=== PATIENT | female | born 1980 | race African-American/Black ===

== ENCOUNTER 2023-12-13 04:02 | Day surgery (SDC) | payer OTHER ==
[2023-12-12 18:03] VITALS: BMI 19.2
[2023-12-13] MEDS ORDERED: oxyCODONE HCL 5 MG TABLET PO PRN (09:38)
[2023-12-13] MEDS ORDERED: LACTATED RINGERS SOLUTION 1,000 ML IV SCH (09:45)
[2023-12-13] MEDS ORDERED: LIDOCAINE HCL 1%, 10 MG/ML (20ML VIAL) ONE (10:10)
[2023-12-13] MEDS ORDERED: LIDOCAINE 1%/EPI 1:100000 (20 ML MULTI DOSE VIAL) ONE (11:27)
[2023-12-13] MEDS ORDERED: BUPIVACAINE HCL/PF 0.5% (5MG/ML) 10 ML VIAL ONE (11:28)
[2023-12-13] MEDS ORDERED: MIDAZOLAM HCL 2 MG/2 ML SINGLE DOSE VIAL ONE (12:47)
[2023-12-13] MEDS ORDERED: PROPOFOL 20 ML ONE ×2 (12:47→12:58)
[2023-12-13] MEDS: ceFAZolin SODIUM 1 GM VIAL IVPB ONE (13:05)
[2023-12-13] MEDS: LIDOCAINE 1%/EPI 1:100000 (20 ML MULTI DOSE VIAL) IJ ONE (13:29)
[2023-12-13] MEDS: BUPIVACAINE HCL/PF 0.5% (5 MG/ML) 30 ML VIAL IJ ONE (13:30)
[2023-12-13 13:48] VITALS: RESP 20
[2023-12-13 15:25] VITALS: BP 133/80; PULSE 90; TEMP 98.2
[2023-12-13] MEDS ORDERED: ONDANSETRON 4 MG/2 ML VIAL ONE (15:40)
[2023-12-13] MEDS: ONDANSETRON 4 MG/2 ML VIAL IVPUSH PRN (15:44)
== END 2023-12-13 16:43 | disposition home or self-care (01) ==
LOC: JASU-SURG 04:02
PROVIDERS: ATTEND Surgery
PROC: 0JB80ZX Excision of Abdomen Subcutaneous Tissue and Fascia, Open Approach, Diagnostic (ICD-10-PCS; principal; 2023-12-13 12:00)
DX: D21.4 Benign neoplasm of connective and other soft tissue of abdomen (principal)
CPT/HCPCS: 81025; 88305-TC; 88341-TC; 88342-TC